=== PATIENT | female | born 1950 | race Caucasian/White ===

== ENCOUNTER 2016-11-29 12:23 | Emergency (ER) | payer OTHER ==
[~2016-11-29] VITALS: Ht 160 cm; Wt 80.0 kg
[2016-11-29 12:46] VITALS: Ht 160 cm; Wt 80.0 kg
[2016-11-29] MEDS ORDERED: AZIT250T94 PO (13:50)
[2016-11-29] MEDS ORDERED: PROM5SYR2 PO (13:50)
[2016-11-29] MEDS ORDERED: IBUP-1542 PO (13:57)
--- NOTE | 2016-11-29 13:59 | ERD ---
ER Documentation Chief Complaint Date/Time DATE: 11/29/16 TIME: 13:58 Chief Complaint FLU LIKE SYMPTOMS X 2 DAYS, COUGH HPI 66-year-old female presents with productive cough and body aches and subjective fevers for the last 3 days. She denies any vomiting, abdominal pain, chest pain , neck stiffness, rashes. ROS All systems reviewed and are negative except as per history of present illness. Medications Home Meds Active Scripts Ibuprofen* (Motrin*) 600 Mg Tab, 600 MG PO Q6, #15 TAB Prov:ROXANNA PAPPAS MD 11/29/16 Promethazine HCl/Codeine (Prometh-Codein 6.25-10 mg/5 ml) 5 Ml Syrup, 5 ML PO QID for 4 Days 4 ounces Prov:ROXANNA PAPPAS MD 11/29/16 Azithromycin* (Zithromax*) 250 Mg Tablet, 250 MG PO .ZPACK DIRECTED, #6 TAB TAKE 500 MG (2 TABS) THE FIRST DAY THEN 250 MG (1 TAB) DAYS 2-5 Prov:ROXANNA PAPPAS MD 11/29/16 Physical Exam Vitals Vital Signs Date Time Temp Pulse Resp B/P Pulse Ox O2 Delivery O2 Flow Rate FiO2 11/29/16 12:46 99.2 110 24 133/89 99 Physical Exam Const: [] Alert, [id number]. Head: Atraumatic Eyes: Normal Conjunctiva ENT: Normal External Ears, Nose and Mouth. TMs and oropharynx normal. Neck: Full range of motion..~ No meningismus. Resp: Clear to auscultation bilaterally. Rhonchi and coarse cough without rales, wheezing or retractions Cardio: Regular rate and rhythm, no murmurs Abd: Soft, non tender, non distended. Normal bowel sounds Skin: No petechiae or rashes Back: No midline or flank tenderness Ext: No cyanosis, or edema Neur: Awake and alert Psych: Normal Mood and Affect Results 24 hrs Current Medications Medications (Trade) Dose Ordered Sig/Annabella Route PRN Reason Start Time Stop Time Status Last Admin Dose Admin Ibuprofen (Motrin) 600 mg ONCE ONCE PO 11/29/16 14:00 11/29/16 14:01 Promethazine HCl/ Codeine (Phenergan/ Codeine) 10 ml ONCE ONCE PO 11/29/16 14:00 11/29/16 14:01 Procedures/MDM Patient presents with URI symptoms without signs of respiratory distress or hypoxemia. Patient is not currently having any chest pain. Given the duration and productive cough she will be treated with Zithromax, promethazine with codeine and ibuprofen. The patient was stable with no new complaints during the ER course. Clinically, there is no current evidence to suggest meningitis, sepsis, acute abdomen, pneumonia, acute coronary syndrome, pulmonary embolism, or any other emergent condition appearing to require further evaluation or hospitalization. The patient should certainly return for any new or worsening symptoms per the aftercare instructions. They should otherwise follow-up with her primary care doctor for reevaluation this week. Departure Diagnosis: Primary Impression: Upper respiratory infection URI type: unspecified URI Qualified Code: J06.9 - Upper respiratory tract infection, unspecified type Condition: Stable Patient Instructions: Acute Bronchitis Additional Instructions: Recheck for new or worsening symptoms with primary care doctor. ROXANNA PAPPAS MD Nov 29, 2016 13:59
[2016-11-29] MEDS ORDERED: PROMETHAZINE/CODEINE 5ML CUP PO ONE (14:00)
[2016-11-29] MEDS ORDERED: IBUPROFEN 600 MG TAB PO ONE (14:00)
== END 2016-11-29 14:11 | disposition home or self-care (01) ==
LOC: FTE 12:23
DX: J06.9 Acute upper respiratory infection, unspecified (principal)
CPT/HCPCS: Z7502; Z7610; 99284